=== PATIENT | male | born 1985 | race Caucasian/White ===

== ENCOUNTER → 2016-08-10 | Outpatient (CLI) | payer OTHER ==
[2016-08-10 08:54] LABS: ABSOLUTE EOSINOPHILS # (AUTO) 0.4 10^3/uL (0.0-0.6); ABSOLUTE MONOCYTES (AUTO) 0.5 10^3/uL (0.1-1.4); ABSOLUTE NEUT (AUTO) 4.9 10^3/uL (1.7-8.2); BASOPHILS % (AUTO) 0.4 % (0-2); EOSINOPHILS % (AUTO) 4.1 % (0-6); HEMATOCRIT 45.3 % (37.9-51.0); HEMOGLOBIN 15.9 g/dL (13.5-17.0); HGB HCT DIFFERENCE 2.4; LYMPHOCYTES % (AUTO) 33.8 % (13-45); MEAN CORPUSCULAR HEMOGLOBIN 27.8 pg (27.0-33.4); MEAN CORPUSCULAR HGB CONC 35.1 g/dL (32.0-36.0); MEAN CORPUSCULAR VOLUME 79 fl (80-97); MONOCYTES % (AUTO) 5.3 % (3-13); RED BLOOD COUNT 5.71 10^6/uL (4.35-5.55); RED CELL DISTRIBUTION WIDTH 13.4 % (11.5-14.0); SEGMENTED NEUTROPHILS % (AUTO) 56.4 % (42-78); WHITE BLOOD COUNT 8.8 10^3/uL (4.0-10.5)
== END ==
LOC: RAD 07:31
PROVIDERS: ATTEND Nurse Practitioner Adult Health
DX: J45.31 Mild persistent asthma with (acute) exacerbation (principal); R06.00 Dyspnea, unspecified
CPT/HCPCS: 36415; 71250; 85025; 86003

== ENCOUNTER 2017-08-18 20:01 | Emergency (ER) | payer OTHER ==
--- NOTE | 2017-08-18 20:32 | ER Document Report ---
ED Medical Screen (RME) - General Chief Complaint: Abdominal Pain Stated Complaint: RIGHT SIDE PAIN Time Seen by Provider: 08/18/17 20:30 Notes: Patient presents stating that he has right lower quadrant and right lateral abdominal pain. He states that he has had this for several days. And that is harder to take a deep breath because of the pain. He states that he has had some mild nausea and upset stomach as well. No diarrhea no vomiting. No previous abdominal surgeries. He denies any chronic medical conditions. He states he came in tonight because he could not sleep due to the pain. TRAVEL OUTSIDE OF THE [place] IN LAST 30 DAYS: No - Related Data Allergies/Adverse Reactions: amoxicillin [Amoxicillin] Allergy (Severe, Verified 07/16/11 20:06) Past Medical History GI Medical History: Reports: Hx Hiatal Hernia - Immunizations Hx Diphtheria, Pertussis, Tetanus Vaccination: Yes Physical Exam - Vital signs Vitals: Temp Pulse Resp BP Pulse Ox 98.6 F 79 18 143/84 H 99 08/18/17 20:18 08/18/17 20:18 08/18/17 20:18 08/18/17 20:18 08/18/17 20:18 Course - Vital Signs Vital signs: Temp Pulse Resp BP Pulse Ox 98.6 F 79 18 143/84 H 99 08/18/17 20:18 08/18/17 20:18 08/18/17 20:18 08/18/17 20:18 08/18/17 20:18
[2017-08-18 21:05] LABS: ABSOLUTE EOSINOPHILS # (AUTO) 0.5 10^3/uL (0.0-0.6); ABSOLUTE MONOCYTES (AUTO) 0.5 10^3/uL (0.1-1.4); ABSOLUTE NEUT (AUTO) 6.1 10^3/uL (1.7-8.2); BASOPHILS % (AUTO) 0.5 % (0-2); EOSINOPHILS % (AUTO) 4.7 % (0-6); HEMATOCRIT 42.9 % (37.9-51.0); HEMOGLOBIN 15.2 g/dL (13.5-17.0); LYMPHOCYTES % (AUTO) 29.9 % (13-45); MEAN CORPUSCULAR HEMOGLOBIN 27.8 pg (27.0-33.4); MEAN CORPUSCULAR HGB CONC 35.4 g/dL (32.0-36.0); MEAN CORPUSCULAR VOLUME 79 fl (80-97); MONOCYTES % (AUTO) 5.2 % (3-13); PLATELET COUNT 229 10^3/uL (150-450); RED BLOOD COUNT 5.45 10^6/uL (4.35-5.55); RED CELL DISTRIBUTION WIDTH 13.1 % (11.5-14.0); SEGMENTED NEUTROPHILS % (AUTO) 59.7 % (42-78); TOTAL CELLS COUNTED % (AUTO) 100 %; WHITE BLOOD COUNT 10.2 10^3/uL (4.0-10.5)
[2017-08-18 21:07] LABS: APPEARANCE,URINE CLEAR; BILIRUBIN,URINE NEGATIVE (NEGATIVE); COLOR,URINE STRAW; GLUCOSE, URINE NEGATIVE (NEGATIVE); KETONES,URINE NEGATIVE (NEGATIVE); LEUKOCYTE ESTERASE,URINE NEGATIVE (NEGATIVE); NITRITE,URINE NEGATIVE (NEGATIVE); PROTEIN,URINE NEGATIVE (NEGATIVE); URINE SPECIFIC GRAVITY 1.004; UROBILINOGEN,URINE NEGATIVE mg/dL (<2.0)
[2017-08-18 21:19] LABS: ALANINE AMINOTRANSFERASE 32 U/L (21-72); ALBUMIN 4.4 g/dL (3.5-5.0); ALKALINE PHOSPHATASE 119 U/L (38-126); ANION GAP 10 (5-19); ASPARTATE AMINO TRANSFERASE 23 U/L (17-59); BILIRUBIN,DIRECT 0.5 mg/dL (0.0-0.4); BILIRUBIN,TOTAL 0.6 mg/dL (0.2-1.3); BLOOD UREA NITROGEN 10 mg/dL (7-20); CARBON DIOXIDE 28 mmol/L (22-30); CHLORIDE 105 mmol/L (98-107); GLUCOSE 89 mg/dL (75-110); POTASSIUM 4.2 mmol/L (3.6-5.0)
[2017-08-18] MEDS ORDERED: IBUPROFEN 600 MG TABLET PO ONE (23:52)
[2017-08-18] MEDS ORDERED: LIDOCAINE 5% (700 MG) TRANSDERMAL ADH..PATCH TP ONE (23:52)
[2017-08-18] MEDS ORDERED: ACETAMINOPHEN 325 MG TABLET PO ONE (23:52)
--- NOTE | 2017-08-18 23:58 | ER Document Report ---
ED General - General Chief Complaint: Abdominal Pain Stated Complaint: RIGHT SIDE PAIN Time Seen by Provider: 08/18/17 20:30 Notes: Patient is a 32-year-old male who presents with 48 hours of right-sided flank and abdominal wall tenderness. Patient states that he noticed this yesterday and that has gotten progressively worse since onset. He describes it as an aching, throbbing pain to the right flank and lower abdomen. He notes that moving, coughing and breathing worsens the pain. He has not tried any to improve the pain. He denies any history of similar injury in the past. He notes he has had one episode of nausea but no vomiting or diarrhea. No fever or constitutional symptoms. He has not seen his primary doctor regarding today' s concerns. TRAVEL OUTSIDE OF THE [place] IN LAST 30 DAYS: No - Related Data Allergies/Adverse Reactions: amoxicillin [Amoxicillin] Allergy (Severe, Verified 07/16/11 20:06) Past Medical History - General Information source: Patient - Social History Smoking Status: Never Smoker Frequency of alcohol use: Rare Drug Abuse: None Lives with: Spouse/Significant other Family History: Reviewed & Not Pertinent Patient has suicidal ideation: No Patient has homicidal ideation: No Renal/ Medical History: Denies: Hx Peritoneal Dialysis GI Medical History: Reports: Hx Hiatal Hernia Past Surgical History: Reports: Hx Orthopedic Surgery - Shoulder - Immunizations Hx Diphtheria, Pertussis, Tetanus Vaccination: Yes Review of Systems - Review of Systems Notes: Constitutional: Negative for fever. HENT: Negative for sore throat. Eyes: Negative for visual changes. Cardiovascular: Negative for chest pain. Respiratory: Negative for shortness of breath. Gastrointestinal: Negative for abdominal pain, vomiting or diarrhea. Genitourinary: Negative for dysuria. Musculoskeletal: Positive for flank tenderness Skin: Negative for rash. Neurological: Negative for headaches, weakness or numbness. 10 point ROS negative except as marked above and in HPI. Physical Exam - Vital signs Vitals: Temp Pulse Resp BP Pulse Ox 98.6 F 79 18 143/84 H 99 08/18/17 20:18 08/18/17 20:18 08/18/17 20:18 08/18/17 20:18 08/18/17 20:18 Interpretation: Hypertensive Notes: PHYSICAL EXAMINATION: GENERAL: Well-appearing, well-nourished and in no acute distress. HEAD: Atraumatic, normocephalic. EYES: Pupils equal round and reactive to light, extraocular movements intact, sclera anicteric, conjunctiva are normal. ENT: nares patent, oropharynx clear without exudates. Moist mucous membranes. NECK: Normal range of motion, supple without lymphadenopathy LUNGS: Breath sounds clear to auscultation bilaterally and equal. No wheezes rales or rhonchi. HEART: Regular rate and rhythm without murmurs Chest wall: Pain on palpation of the right lower ribs as well as the flank musculature on the right side ABDOMEN: Soft, nontender, normoactive bowel sounds. No guarding, no rebound. No masses appreciated. EXTREMITIES: Normal range of motion, no pitting or edema. No cyanosis. NEUROLOGICAL: No focal neurological deficits. Moves all extremities spontaneously and on command. PSYCH: Normal mood, normal affect. SKIN: Warm, Dry, normal turgor, no rashes or lesions noted. Course - Re-evaluation Re-evalutation: 08/18/17 23:56 Patient presents with signs and symptoms most consistent with a musculoskeletal strain of the oblique muscle on the right. He has diffuse tenderness with movement, coughing and breathing of the flank on the right side along the entire aspect of the abdomen the lateral portion. No pleuritic pain, no tachypnea or dyspnea. Patient is PERC criteria negative. Very low clinical suspicion for acute PE. His abdominal exam is benign without any focal areas of tenderness. Bedside right upper quadrant ultrasound does not demonstrate any evidence of gallbladder wall thickening, pericholecystic fluid or gallstones. Labs are not consistent with an acute hepatitis, renal colic, or pyelonephritis. I instructed the patient to begin NSAIDs, Tylenol, topical lidocaine as well as stretching and heat. At this time will discharge with return precautions and follow-up recommendations. Verbal discharge instructions given a the bedside and opportunity for questions given. Medication warnings reviewed. Patient is in agreement with this plan and has verbalized understanding of return precautions and the need for primary care follow-up in the next 24-72 hours. - Vital Signs Vital signs: Temp Pulse Resp BP Pulse Ox 98.5 F 61 18 128/79 H 100 08/19/17 00:57 08/19/17 00:57 08/19/17 00:57 08/19/17 00:57 08/19/17 00:57 - Laboratory Result Diagrams: 08/18/17 20:51 08/18/17 20:51 Laboratory results interpreted by me: 08/18/17 08/18/17 20:51 20:51 MCV 79 L Direct Bilirubin 0.5 H Discharge - Discharge Clinical Impression: Right flank pain, Musculoskeletal strain Condition: Good Disposition: HOME, SELF-CARE Additional Instructions: Your signs and symptoms are most consistent with an abdominal wall muscle strain. You should continue to take anti-inflammatories such as ibuprofen 600 mg every 6 hours. Continue to apply heat to the area is much your able. Please follow-up with your primary care physician if you do not have improving your symptoms in the next 1-2 weeks. Please return immediately if you develop weakness, numbness, spreading redness from the area, or any other symptoms that are concerning to you.
[2017-08-19 00:58] VITALS: BP 128/79
== END 2017-08-19 00:59 | disposition home or self-care (01) ==
LOC: ER 20:01
DX: T14.8XXA Other injury of unspecified body region, initial encounter (principal); R10.30 Lower abdominal pain, unspecified; X58.XXXA Exposure to other specified factors, initial encounter; Z88.0 Allergy status to penicillin
CPT/HCPCS: 36415; 80053; 81001; 85025; 99284

== ENCOUNTER 2017-10-09 21:55 | Emergency (ER) | payer OTHER ==
--- NOTE | 2017-10-09 22:24 | ER Document Report ---
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 Initially had watery eyes and trouble breathing, but this improved after going outside of the house. Denies wheezing , stridor, blurry vision, headache or syncope. TRAVEL OUTSIDE OF THE [place] IN LAST 30 DAYS: No - Related Data Allergies/Adverse Reactions: amoxicillin [Amoxicillin] Allergy (Severe, Verified 07/16/11 20:06) Past Medical History - General Information source: Patient - Social History Smoking Status: Unknown if Ever Smoked Family History: Reviewed & Not Pertinent Renal/ Medical History: Denies: Hx Peritoneal Dialysis GI Medical History: Reports: Hx Hiatal Hernia Past Surgical History: Reports: Hx Orthopedic Surgery - Shoulder - Immunizations Hx Diphtheria, Pertussis, Tetanus Vaccination: Yes Review of Systems - Review of Systems Notes: REVIEW OF SYSTEMS: CONSTITUTIONAL: -fevers, -chills EENT: +eye pain, -difficulty swallowing, -nasal congestion CARDIOVASCULAR: -chest pain, -syncope. RESPIRATORY: -cough, +SOB GASTROINTESTINAL: -abdominal pain, -nausea, -vomiting, -diarrhea GENITOURINARY: -dysuria, -hematuria MUSCULOSKELETAL: -back pain, -neck pain SKIN: -rash or skin lesions. HEMATOLOGIC: -easy bruising or bleeding. LYMPHATIC: -swollen, enlarged glands. NEUROLOGICAL: -altered mental status or loss of consciousness, -headache, - neurologic symptoms PSYCHIATRIC: -anxiety, -depression. ALL OTHER SYSTEMS REVIEWED AND NEGATIVE. Physical Exam - Vital signs Vitals: Temp Pulse Resp BP Pulse Ox 98.3 F 65 16 133/81 H 99 10/09/17 22:27 10/09/17 22:27 10/09/17 22:27 10/09/17 22:27 10/09/17 22:27 - Notes Notes: PHYSICAL EXAMINATION: GENERAL: Well-appearing, well-nourished and in no acute distress. HEAD: Atraumatic, normocephalic. EYES: Pupils equal round and reactive to light, extraocular movements intact, sclera anicteric, conjunctiva are normal. ENT: nares patent, oropharynx clear without exudates. Moist mucous membranes. NECK: Normal range of motion, supple without lymphadenopathy LUNGS: Breath sounds clear to auscultation bilaterally and equal. No wheezes rales or rhonchi. HEART: Regular rate and rhythm without murmurs ABDOMEN: Soft, nontender, normoactive bowel sounds. No guarding, no rebound. No masses appreciated. EXTREMITIES: Normal range of motion, no pitting or edema. No cyanosis. NEUROLOGICAL: Cranial nerves grossly intact. Normal speech, normal gait. Normal sensory and motor exams. PSYCH: Normal mood, normal affect. SKIN: Warm, Dry, normal turgor, no rashes or lesions noted. Course - Re-evaluation Re-evalutation: Patient appears well. Upon my evaluation, no respiratory distress and no symptoms. Given patient return precautions and understands. - Vital Signs Vital signs: Temp Pulse Resp BP Pulse Ox 98.3 F 65 16 133/81 H 99 10/09/17 22:27 10/09/17 22:27 10/09/17 22:27 10/09/17 22:27 10/09/17 22:27 Discharge - Discharge Clinical Impression: Exposure to chemical irritant Condition: Stable Disposition: HOME, SELF-CARE Additional Instructions: NORMAL EXAM AND WORKUP: At this time, your examination and workup show no significant abnormality. No significant abnormal physical findings were noted. All laboratory, EKG, and imaging (x-ray, CT scans, ultrasound) studies that were ordered show no significant abnormality. Although your examination and all studies that were ordered showed no significant abnormal finding, there are no examinations and no studies that are 100% accurate. There is always the possibility that some abnormality could exist and not be detected with physical examination or within the limits and capabilities of laboratory and other studies. You should return or follow up as you were instructed on your visit today for further evaluation if your symptoms do not resolve.
[2017-10-09 22:35] VITALS: BP 133/81
== END 2017-10-09 22:45 | disposition home or self-care (01) ==
LOC: ER 21:55
DX: Z77.098 Contact with and (suspected) exposure to other hazardous, chiefly nonmedicinal, chemicals (principal); R06.02 Shortness of breath
CPT/HCPCS: 99283

== ENCOUNTER 2019-10-01 21:28 | Emergency (ER) | payer OTHER ==
--- NOTE | 2019-10-01 22:07 | ER Document Report ---
ED Medical Screen (RME) - General Chief Complaint: Abdominal Pain Stated Complaint: ABDOMINAL PAIN/CHEST PAIN/FLANK PAIN Primary Care Provider: JOEL RAMOS MD [Primary Care Provider] - Follow up as needed Notes: Patient is a 34-year-old white male with past medical history of depression, GERD, hiatal hernia who presents the emergency department with chief complaint of abdominal pain and chest pain for 3 months. Has been seeing different physicians who continue to prescribe Zofran and nausea medications without any relief. Saw telecommunications support who recommended studies of the gallbladder. He states so far those have been normal. He was supposed to have what he describes to be a HIDA scan on Friday but states he cannot wait much longer. He is really concerned about the chest pain. States it is associated with nausea. No diarrhea or constipation. States the pain is worse sometimes with eating. Denies any history of A. fib or other heart or lung conditions. I have treated and performed a rapid initial assessment of this patient. A comprehensive ED assessment and evaluation of the patient, analysis of test results and completion of medical decision making process will be conducted by additional ED providers. PHYSICAL EXAMINATION: GENERAL: Well-appearing, well-nourished and in no acute distress. A&Ox4. Answers questions appropriately. TRAVEL OUTSIDE OF THE [place] IN LAST 30 DAYS: No - Related Data Allergies/Adverse Reactions: amoxicillin [Amoxicillin] Allergy (Severe, Verified 07/16/11 20:06) Past Medical History Pulmonary Medical History: Reports: Hx Bronchitis Renal/ Medical History: Denies: Hx Peritoneal Dialysis GI Medical History: Reports: Hx Hiatal Hernia Past Surgical History: Reports: Hx Orthopedic Surgery - Shoulder - Immunizations Hx Diphtheria, Pertussis, Tetanus Vaccination: Yes Physical Exam - Vital signs Vitals: Temp Pulse Resp BP Pulse Ox 99.0 F 68 18 166/84 H 97 10/01/19 21:44 10/01/19 21:44 10/01/19 21:44 10/01/19 21:44 10/01/19 21:44 Course - Vital Signs Vital signs: Temp Pulse Resp BP Pulse Ox 99.0 F 68 18 166/84 H 97 10/01/19 21:44 10/01/19 21:44 10/01/19 21:44 10/01/19 21:44 10/01/19 21:44 Doctor's Discharge - Discharge Referrals: JOEL RAMOS MD [Primary Care Provider] - Follow up as needed
[2019-10-01 22:40] LABS: ABSOLUTE EOSINOPHILS # (AUTO) 0.4 10^3/uL (0.0-0.6); ABSOLUTE LYMPHOCYTES (AUTO) 2.5 10^3/uL (0.5-4.7); ABSOLUTE MONOCYTES (AUTO) 0.4 10^3/uL (0.1-1.4); ABSOLUTE NEUT (AUTO) 4.2 10^3/uL (1.7-8.2); BASOPHILS % (AUTO) 0.3 % (0-2); EOSINOPHILS % (AUTO) 5.3 % (0-6); HEMATOCRIT 42.2 % (37.9-51.0); LYMPHOCYTES % (AUTO) 33.5 % (13-45); MEAN CORPUSCULAR HEMOGLOBIN 28.4 pg (27.0-33.4); MEAN CORPUSCULAR HGB CONC 35.6 g/dL (32.0-36.0); MEAN CORPUSCULAR VOLUME 80 fl (80-97); MONOCYTES % (AUTO) 5.2 % (3-13); PLATELET COUNT 203 10^3/uL (150-450); RED BLOOD COUNT 5.29 10^6/uL (4.35-5.55); RED CELL DISTRIBUTION WIDTH 12.3 % (11.5-14.0); SEGMENTED NEUTROPHILS % (AUTO) 55.7 % (42-78); TOTAL CELLS COUNTED % (AUTO) 100 %; WHITE BLOOD COUNT 7.5 10^3/uL (4.0-10.5)
[2019-10-01 22:51] LABS: APPEARANCE,URINE SLIGHTLY-CLOUDY; BILIRUBIN,URINE NEGATIVE (NEGATIVE); COLOR,URINE YELLOW; GLUCOSE, URINE NEGATIVE (NEGATIVE); KETONES,URINE NEGATIVE (NEGATIVE); PROTEIN,URINE 30 mg/dL (NEGATIVE); URINE SPECIFIC GRAVITY 1.036
[2019-10-01 22:58] LABS: ALBUMIN 4.3 g/dL (3.5-5.0); ALKALINE PHOSPHATASE 108 U/L (38-126); ANION GAP 7 (5-19); ASPARTATE AMINO TRANSFERASE 26 U/L (17-59); BILIRUBIN,TOTAL 0.5 mg/dL (0.2-1.3); BLOOD UREA NITROGEN 15 mg/dL (7-20); CALCIUM 9.3 mg/dL (8.4-10.2); CARBON DIOXIDE 26 mmol/L (22-30); CHLORIDE 105 mmol/L (98-107); GLUCOSE 100 mg/dL (75-110); POTASSIUM 3.8 mmol/L (3.6-5.0); TOTAL PROTEIN 7.6 g/dL (6.3-8.2)
--- NOTE | 2019-10-01 23:22 | ER Document Report ---
ED General - General Chief Complaint: Abdominal Pain Stated Complaint: ABDOMINAL PAIN/CHEST PAIN/FLANK PAIN Time Seen by Provider: 10/01/19 23:11 Primary Care Provider: JOEL RAMOS MD [Primary Care Provider] - Follow up in 3-5 days Notes: Patient is a 34-year-old male that comes to the emergency department for chief complaint of pain in his upper abdomen that goes into his lower chest, he reports frequent nausea, he states symptoms are much worse after waking up in the morning, also worse with food. He denies vomiting but he frequently feels "watering in my mouth". Symptoms have been worse for the past 2 weeks. He states he was seen by urgent care, told he had a virus, tested for coronavirus and this was negative. He states he was prescribed Zofran which keeps him from vomiting but has not resolved his symptoms. He is on pantoprazole, has a history of severe GERD, esophageal stricture with dilation, and small hiatal hernia. He had a negative ultrasound and is pending a HIDA scan on Friday with gastroenterology. He is a former smoker, stopped drinking alcohol, states he just not drinking Mountain Dew as well trying to resolve his symptoms. He denies recreational drugs. TRAVEL OUTSIDE OF THE [place] IN LAST 30 DAYS: No - Related Data Allergies/Adverse Reactions: amoxicillin [Amoxicillin] Allergy (Severe, Verified 07/16/11 20:06) Past Medical History - General Information source: Patient - Social History Smoking Status: Never Smoker Frequency of alcohol use: Occasional Drug Abuse: None Lives with: Family Family History: Reviewed & Not Pertinent Patient has suicidal ideation: No Patient has homicidal ideation: No Pulmonary Medical History: Reports: Hx Bronchitis Renal/ Medical History: Denies: Hx Peritoneal Dialysis GI Medical History: Reports: Hx Gastroesophageal Reflux Disease, Hx Hiatal Hernia, Other - Esophageal stricture Past Surgical History: Reports: Hx Orthopedic Surgery - Shoulder - Immunizations Hx Diphtheria, Pertussis, Tetanus Vaccination: Yes Review of Systems - Review of Systems Constitutional: No symptoms reported EENT: No symptoms reported Cardiovascular: No symptoms reported Respiratory: No symptoms reported Gastrointestinal: See HPI Genitourinary: No symptoms reported Male Genitourinary: No symptoms reported Musculoskeletal: No symptoms reported Skin: No symptoms reported Hematologic/Lymphatic: No symptoms reported Neurological/Psychological: No symptoms reported Physical Exam - Vital signs Vitals: Temp Pulse Resp BP Pulse Ox 99.0 F 68 18 166/84 H 97 10/01/19 21:44 10/01/19 21:44 10/01/19 21:44 10/01/19 21:44 10/01/19 21:44 - Notes Notes: GENERAL: Alert, cooperative, no signs of distress HEAD: Normocephalic, atraumatic. EYES: Pupils equal, round, and reactive to light. Extraocular movements intact. ENT: Oral mucosa moist, tongue midline. Oropharynx unremarkable. Airway patent. NECK: Full range of motion. Supple. Trachea midline. No lymphadenopathy. LUNGS: Clear to auscultation bilaterally, no wheezes, rales, or rhonchi. No respiratory distress. Non-tender chest wall. HEART: Regular rate and rhythm. No murmur ABDOMEN: Left upper quadrant tenderness and mild epigastric tenderness. Remaining abdomen is soft and benign. No distention, guarding, rigidity. Bowel sounds present. GENITOURINARY: Deferred EXTREMITIES: Moves all 4 extremities spontaneously. No edema, normal radial and dorsalis pedis pulses bilaterally. No cyanosis. BACK: no cervical, thoracic, lumbar midline tenderness. No saddle anesthesia, normal distal neurovascular exam. Moves all extremities in full range of motion. NEUROLOGICAL: Alert and oriented x3. Normal speech. Cranial nerves II through XII grossly intact. Strength 5/5 in all extremities. PSYCH: Slightly anxious SKIN: Warm, dry, normal turgor. No rashes or lesions noted. Course - Re-evaluation Re-evalutation: Work-up from triage reviewed including unremarkable CBC, unremarkable chemistry, unremarkable urinalysis for elevated specific gravity. Unremarkable EKG and chest x-ray. Patient with very upper GI sounding symptoms, he has some tenderness in the left upper quadrant and mildly in the epigastric area. He already had a negative ultrasound and has a HIDA scan pending on Friday. Patient also has a significant history for small hiatal hernia, significant GERD, and his symptoms are very specific with this (worsened when eating, worsened when lying down). Patient did just stop drinking heavy amounts of Mountain Dew. Patient was provided with GI cocktail, Carafate, Pepcid. On reevaluation patient is much improved. Patient is able to tolerate p.o. without any difficulty. Very low suspicion bridgette t this is cardiac based on his negative work-up despite 2 weeks of symptoms. Discussed expectations, follow-up, and return precautions at length. Patient states appreciation and agreement with plan. Stable and well-appearing at time of discharge. - Vital Signs Vital signs: Temp Pulse Resp BP Pulse Ox 98.6 F 53 L 16 127/75 H 98 10/02/19 01:47 10/02/19 01:47 10/02/19 01:47 10/02/19 01:47 10/02/19 01:47 - Laboratory Result Diagrams: 10/01/19 22:20 10/01/19 22:20 Laboratory results interpreted by me: 10/01/19 22:20 Urine Protein 30 H Urine Urobilinogen 2.0 H - EKG Interpretation by Me Additional EKG results interpreted by me: EKG shows sinus rhythm at a rate of 61, QTC 407, normal axis, no T wave in versions or ST segment changes in consecutive leads Discharge - Discharge Clinical Impression: Epigastric pain Condition: Stable Disposition: HOME, SELF-CARE Additional Instructions: Your symptoms and examination indicate gastritis and esophagitis (inflammation of your upper gastrointestinal tract). Your work-up today does not show any concerning findings. Take Phenergan for nausea, take Carafate and Pepcid as prescribed to help treat this, you can take additional Rolaids, Tums, Maalox, etc. if needed. You can take Tylenol for pain. Avoid NSAIDs, alcohol, smoking, caffeine, spicy food. Start with clear fluids, progress to bland diet. Follow-up with primary care for additional evaluation including completing your HIDA scan and also possible H. pylori testing or endoscopy. Return if you worsen including uncontrolled vomiting, vomiting blood, black stools, severe pain, fever of 100.4 or greater, or any other concerning or worsening symptoms. Prescriptions: Sucralfate [Carafate 1 gm Tablet] 1 gm PO QID #20 tablet Famotidine [Pepcid 20 mg Tablet] 20 mg PO BID #20 tablet Promethazine HCl [Phenergan 25 mg Tablet] 25 mg PO Q6H PRN #15 tablet PRN Reason: Referrals: JOEL RAMOS MD [Primary Care Provider] - Follow up in 3-5 days
--- NOTE | 2019-10-01 23:33 | RADIOLOGY REPORT (SQ) ---
EXAM DESCRIPTION: XR CHEST 1 VIEW COMPLETED DATE/TME: 10/01/2019 11:17 PM CLINICAL HISTORY: cp COMPARISON: February 25, 2016 FINDINGS: Cardiac silhouette is within normal limits. There is no focal parenchymal or pleural disease. There is no acute osseous process visualized. IMPRESSION: No evidence of acute cardiopulmonary disease.
[2019-10-01] MEDS ORDERED: FAMOTIDINE 20 MG TABLET PO ONE (23:37)
[2019-10-01] MEDS ORDERED: METOCLOPRAMIDE HCL ORAL SOLN 10 MG/10 ML UDCUP PO ONE (23:37)
[2019-10-01] MEDS ORDERED: SUCRALFATE 1 GM TABLET PO ONE (23:37)
[2019-10-01] MEDS ORDERED: LIDOCAINE 2% VISCOUS SOLN 15 ML UDCUP PO ONE (23:37)
[2019-10-01] MEDS ORDERED: MAG HYDROX/AL HYDROX/SIMETH SUSP 30 ML UDCUP PO ONE (23:37)
[2019-10-02 01:49] VITALS: BP 127/75
--- NOTE | 2019-10-02 08:47 | EKG REPORT ---
SEVERITY:- NORMAL ECG - SINUS RHYTHM : Confirmed by: Chavez Cortez MD 02-Oct-2019 08:46:25
== END 2019-10-02 01:47 | disposition home or self-care (01) ==
LOC: ER 21:28
DX: R10.13 Epigastric pain (principal); R07.9 Chest pain, unspecified; R10.10 Upper abdominal pain, unspecified; R11.0 Nausea; Z79.899 Other long term (current) drug therapy; Z88.1 Allergy status to other antibiotic agents
CPT/HCPCS: 93005; 99284; 36415; 83690; 85025; 80053; 81001; 84484; 71045; 93010; J3490

== ENCOUNTER 2019-10-03 06:09 | Emergency (ER) | payer OTHER ==
[2019-10-03 06:15] VITALS: BP 144/83
[2019-10-03] MEDS ORDERED: TETRACAINE HCL 0.5% OPH SOLN 4 ML ONE (07:02)
[2019-10-03] MEDS ORDERED: ERYTHROMYCIN 0.5% OPH OINT 1 GM UNIT DOSE OD ONE (07:16)
[2019-10-03] MEDS ORDERED: CYCLOPENTOLATE HCL 2% OPH SOLN 2 ML OD ONE (07:16)
--- NOTE | 2019-10-03 07:47 | ER Document Report ---
ED Eye Complaint - General Chief Complaint: Eye Pain Stated Complaint: RIGHT EYE PAIN Time Seen by Provider: 10/03/19 06:43 Primary Care Provider: JOEL RAMOS MD [Primary Care Provider] - Follow up as needed TRAVEL OUTSIDE OF THE [place] IN LAST 30 DAYS: No - HPI Onset: Other - Last night Eye location: Right Occurred at: Home Quality of pain: Sharp Severity: Moderate Exposure: Other - sawdust Safety glasses worn: Yes Contact lenses worn: No Associated symptoms: Burning, Pain, Photophobia, Redness, Eyelid swelling. denies: Blurred vision, Double vision, Decreased vision, Loss of vision - Related Data Allergies/Adverse Reactions: amoxicillin [Amoxicillin] Allergy (Severe, Verified 07/16/11 20:06) Past Medical History - General Information source: Patient - Social History Smoking Status: Never Smoker Chew tobacco use (# tins/day): No Frequency of alcohol use: None Drug Abuse: None Family History: Reviewed & Not Pertinent Patient has suicidal ideation: No Patient has homicidal ideation: No Pulmonary Medical History: Reports: Hx Bronchitis Renal/ Medical History: Denies: Hx Peritoneal Dialysis GI Medical History: Reports: Hx Gastroesophageal Reflux Disease, Hx Hiatal Hernia Past Surgical History: Reports: Hx Orthopedic Surgery - Shoulder - Immunizations Hx Diphtheria, Pertussis, Tetanus Vaccination: Yes Review of Systems - Review of Systems Notes: Constitutional: Negative for fever. HENT: Negative for sore throat. Eyes: Negative for visual changes. Cardiovascular: Negative for chest pain. Respiratory: Negative for shortness of breath. Gastrointestinal: Currently under treatment for gastritis. Genitourinary: Negative for dysuria. Musculoskeletal: Negative for back pain. Skin: Negative for rash. Neurological: Negative for headaches, weakness or numbness. 10 point ROS negative except as marked above and in HPI. Physical Exam - Vital signs Vitals: Temp Pulse Resp BP Pulse Ox 97.8 F 52 L 16 144/83 H 99 10/03/19 06:13 10/03/19 06:13 10/03/19 06:13 10/03/19 06:13 10/03/19 06:13 - Notes Notes: GENERAL: Male patient of approximately stated age appearing in moderate discomfort. SKIN: Good turgor no rashes. HEAD: Normocephalic atraumatic. EYES: Moderate swelling of right upper eyelid. Conjunctival injection on the right. Extraocular movements intact. Inspection of left eye normal. NECK: Supple. No masses or thyromegaly. No adenopathy. Carotids 2+ without bruits. No JVD. BACK: Symmetrical without tenderness. CHEST: Respirations unlabored. Breath sounds clear and symmetrical. HEART: Regular rhythm. No murmur gallop or rub. ABDOMEN: Soft nontender without masses, organomegaly or rebound. Bowel sounds normally active. No bruits. EXTREMITIES: No edema. No calf tenderness. Cap refill less than 1.5 seconds. Dorsalis pedis and posterior tibial pulses 3+ and symmetrical. NEUROLOGICAL: Alert and oriented x3. Nonfocal. PSYCHIATRIC: Appropriate affect. - HEENT Visual acuity- Right eye: 20/20 Visual acuity- Left eye: 20/20 Visual acuity- Both eyes: 20/20 Corrective lenses worn: Yes - Glasses Course - Vital Signs Vital signs: Temp Pulse Resp BP Pulse Ox 97.8 F 52 L 16 144/83 H 99 10/03/19 06:13 10/03/19 06:13 10/03/19 06:13 10/03/19 06:13 10/03/19 06:13 Procedures - Eye Procedure Right Time completed: 07:45 Eye Irrigated w/ Saline (ccs): 200 Alcaine Drops Administered: Yes Fluorescein applied: Right Antibiotic Oinment/Drps Admin: Right eye - Erythromycin ointment Cyclogel 2 Drops Administered: Right eye Slit lamp used: Yes Notes: 10/03/19 07:46 Patient has a moderately large corneal abrasion at the 10 o'clock position at the limbus. No streaming of fluorescein. 10/03/19 07:47 No foreign body present on eversion of upper and lower lids. Discharge - Discharge Clinical Impression: Injury of conjunctiva and corneal abrasion of right eye w/o FB Qualifiers: Encounter type: initial encounter Qualified Code(s): S05.01XA - Injury of conjunctiva and corneal abrasion without foreign body, right eye, initial encounter Condition: Stable Disposition: HOME, SELF-CARE Additional Instructions: Corneal Abrasion You have a corneal abrasion, a scratch on the surface of the eye. The pain of a corneal abrasion feels like a sharp particle in the eye. Usually, antibiotics are placed in the eye to prevent infection. Occasionally, medication will be placed in the eye to dilate the pupil. This is done to relieve some of your discomfort and is only temporary. Pain medication may be required. Don't drive or operate machinery until you have the use of both your eyes. The abrasion usually is healed in one or two days. A follow-up examination to confirm healing is recommended. Call the doctor or return at once if you develop severe pain, decreasing vision, eye swelling, or purulent drainage. Use the following medications: Cyclogyl 2 drops in right eye twice a day for the next 3 days Erythromycin ointment thin ribbon of antibiotic under eyelid 3 times a day for next 3 days Tramadol as needed for pain Wear dark glasses if you are exposed to bright light. Do not drive if you are taking tramadol. Return here as needed for new or worsening symptoms. Follow-up with general practice or hall monitor next 3 to 5 days. Prescriptions: Tramadol HCl [Ultram 50 mg Tablet] 50 mg PO Q4HP PRN #12 tab PRN Reason: Referrals: JOEL RAMOS MD [Primary Care Provider] - Follow up as needed
== END 2019-10-03 08:21 | disposition home or self-care (01) ==
LOC: ER 06:09
DX: S05.01XA Injury of conjunctiva and corneal abrasion without foreign body, right eye, initial encounter (principal); H57.11 Ocular pain, right eye; X58.XXXA Exposure to other specified factors, initial encounter; Y92.009 Unspecified place in unspecified non-institutional (private) residence as the place of occurrence of the external cause; Z88.0 Allergy status to penicillin
CPT/HCPCS: 99283; J3490 ×2

== ENCOUNTER → 2019-10-04 | Outpatient (CLI) | payer OTHER ==
--- NOTE | 2019-10-04 10:14 | RADIOLOGY REPORT (SQ) ---
EXAM DESCRIPTION: NM HIDA SCAN WITH CCK IMAGES COMPLETED DATE/TIME: 10/04/2019 9:36 am REASON FOR STUDY: (R10.13)EPIGASTRIC PAIN R10.13 EPIGASTRIC PAIN COMPARISON: Ultrasound report 09/22/2019. RADIONUCLIDE AND DOSE: DOSAGE RADIONUCLIDE: 5.4 millicuries Tc99m Mebrofenin. DOSAGE CCK: 1.9 micrograms. DOSAGE MORPHINE: Not required. The route of agent administration: Intravenous TECHNIQUE: Serial imaging right upper quadrant up to 60 minutes following injection of radionuclide. CCK injected after gallbladder visualized. LIMITATIONS: None. FINDINGS: LIVER: Normal visualization without areas of photopenia. INTRAHEPATIC BILE DUCTS: Normal size and no delay in visualization. COMMON BILE DUCT: Normal without dilatation. GALLBLADDER: Normal visualization. Calculated ejection fraction of 72%. Normal range is greater th an 35%. PHYSICAL RESPONSE: Patients presenting complaint was reproduced. OTHER: No other significant finding. IMPRESSION: 1. No evidence of cystic or common duct obstruction. 2. Normal gallbladder ejection fracture calculated at 72%. TECHNICAL DOCUMENTATION: JOB ID: [id number] 2010 [employer]- All Rights Reserved Reading location - IP/workstation name: [email or web address]
== END ==
LOC: RAD 07:29
PROVIDERS: ATTEND Internal Medicine Gastroenterology
DX: R10.13 Epigastric pain (principal)
CPT/HCPCS: 78227; J2805; A9537; Q9969

== ENCOUNTER 2019-10-12 04:30 | Emergency (ER) | payer OTHER ==
[2019-10-12 05:17] LABS: ABSOLUTE EOSINOPHILS # (AUTO) 0.5 10^3/uL (0.0-0.6); ABSOLUTE LYMPHOCYTES (AUTO) 2.4 10^3/uL (0.5-4.7); ABSOLUTE MONOCYTES (AUTO) 0.4 10^3/uL (0.1-1.4); ABSOLUTE NEUT (AUTO) 3.7 10^3/uL (1.7-8.2); BASOPHILS % (AUTO) 0.4 % (0-2); EOSINOPHILS % (AUTO) 6.7 % (0-6); HEMATOCRIT 42.2 % (37.9-51.0); LYMPHOCYTES % (AUTO) 34.6 % (13-45); MEAN CORPUSCULAR HEMOGLOBIN 28.4 pg (27.0-33.4); MEAN CORPUSCULAR HGB CONC 35.5 g/dL (32.0-36.0); MEAN CORPUSCULAR VOLUME 80 fl (80-97); MONOCYTES % (AUTO) 6.3 % (3-13); PLATELET COUNT 186 10^3/uL (150-450); RED BLOOD COUNT 5.27 10^6/uL (4.35-5.55); RED CELL DISTRIBUTION WIDTH 12.7 % (11.5-14.0); TOTAL CELLS COUNTED % (AUTO) 100 %
[2019-10-12 05:31] LABS: ALBUMIN 4.2 g/dL (3.5-5.0); ALKALINE PHOSPHATASE 146 U/L (38-126); ANION GAP 9 (5-19); ASPARTATE AMINO TRANSFERASE 24 U/L (17-59); BILIRUBIN,TOTAL 0.4 mg/dL (0.2-1.3); BLOOD UREA NITROGEN 14 mg/dL (7-20); CALCIUM 9.7 mg/dL (8.4-10.2); CARBON DIOXIDE 27 mmol/L (22-30); CHLORIDE 103 mmol/L (98-107); GLUCOSE 101 mg/dL (75-110); POTASSIUM 4.1 mmol/L (3.6-5.0); TOTAL PROTEIN 7.3 g/dL (6.3-8.2)
[2019-10-12 05:52] LABS: APPEARANCE,URINE CLEAR; BILIRUBIN,URINE NEGATIVE (NEGATIVE); COLOR,URINE YELLOW; GLUCOSE, URINE NEGATIVE (NEGATIVE); KETONES,URINE NEGATIVE (NEGATIVE); LEUKOCYTE ESTERASE,URINE NEGATIVE (NEGATIVE); NITRITE,URINE NEGATIVE (NEGATIVE); PROTEIN,URINE NEGATIVE (NEGATIVE); URINE SPECIFIC GRAVITY 1.021; UROBILINOGEN,URINE NEGATIVE mg/dL (<2.0)
[2019-10-12] MEDS ORDERED: LIDOCAINE 2% VISCOUS SOLN 15 ML UDCUP PO ONE (06:14)
[2019-10-12] MEDS ORDERED: MAG HYDROX/AL HYDROX/SIMETH SUSP 30 ML UDCUP PO ONE (06:14)
[2019-10-12] MEDS ORDERED: ONDANSETRON ODT 4 MG TAB (6 TAB/ER DISP) PO PRN (06:14)
[2019-10-12] MEDS ORDERED: METOCLOPRAMIDE HCL ORAL SOLN 10 MG/10 ML UDCUP PO ONE (06:14)
--- NOTE | 2019-10-12 06:17 | ER Document Report ---
ED General - General Chief Complaint: Abdominal Pain Stated Complaint: ABDOMINAL PAIN Time Seen by Provider: 10/12/19 05:59 Primary Care Provider: CATRINA MILES [Primary Care Provider] - Follow up as needed Notes: 34-year-old male with history of esophageal stricture, GERD, and general abdominal pain presents to the emergency department with chief complaint of right upper quadrant epigastric stabbing pain that woke him up at 2:00 in the morning.= Patient states that he is followed by the CT but has not been able to get follow-up. Patient did see a health unit coordinator and had a recent HIDA scan which showed a normal ejection fraction and no evidence of common bile duct blockage. Patient states that his pain is mostly epigastric. Patient states that it is stabbing and "I just have a sour stomach". No fever or chills, does not currently complain of nausea or vomiting, normal bowel movements, no hematemesis or hematochezia. Patient does take a daily PPI. Patient was seen here for the same problem approximately 2 weeks ago. No other complaints TRAVEL OUTSIDE OF THE [place] IN LAST 30 DAYS: No - Related Data Allergies/Adverse Reactions: amoxicillin [Amoxicillin] Allergy (Severe, Verified 07/16/11 20:06) Past Medical History - Social History Smoking Status: Unknown if Ever Smoked Family History: Reviewed & Not Pertinent Patient has suicidal ideation: No Patient has homicidal ideation: No Pulmonary Medical History: Reports: Hx Bronchitis Renal/ Medical History: Denies: Hx Peritoneal Dialysis GI Medical History: Reports: Hx Gastroesophageal Reflux Disease, Hx Hiatal Hernia Past Surgical History: Reports: Hx Orthopedic Surgery - Shoulder - Immunizations Hx Diphtheria, Pertussis, Tetanus Vaccination: Yes Review of Systems - Review of Systems Constitutional: See HPI EENT: No symptoms reported Cardiovascular: No symptoms reported Respiratory: No symptoms reported Gastrointestinal: See HPI Genitourinary: See HPI Male Genitourinary: No symptoms reported Musculoskeletal: No symptoms reported Skin: No symptoms reported Hematologic/Lymphatic: No symptoms reported Neurological/Psychological: No symptoms reported Physical Exam - Vital signs Vitals: Temp 97.6 F 10/12/19 04:30 - Notes Notes: PHYSICAL EXAMINATION: Reviewed vital signs and charting by RN GENERAL: Alert, interacts well. No acute distress. HEAD: Normocephalic, atraumatic. EYES: Pupils equal and round. Extraocular movements intact. ENT: Oral mucosa moist, tongue midline. NECK: Full range of motion. Trachea midline. LUNGS: Clear to auscultation bilaterally, no wheezes, rales, or rhonchi. No respiratory distress. HEART: Regular rate and rhythm. No murmur ABDOMEN: soft, non-tender. No distention. Bowel sounds present EXTREMITIES: Moves all 4 extremities spontaneously. No edema, No cyanosis. PSYCH: Normal affect, normal mood. SKIN: Warm, dry, normal turgor. No rashes or lesions noted. Course - Re-evaluation Re-evalutation: 10/12/19 06:41 Patient is well-appearing, nontoxic, afebrile, vital signs within normal limits. Lab work all within normal limits. Lipase 111 to rule out pancreatitis. Patient had a HIDA scan on Friday which showed a 76% ejection fraction with no obstruction. Patient states that he did get a right upper quadrant ultrasound prior to the HIDA scan and it was reported that there was no evidence of cholelithiasis or cholecystitis. Because of the patient's significant GI history with esophageal stricture and burning stomach pain I strongly suspect this is related to a gastritis. I recommended that the patient could try to increase his PPI to twice a day. Patient is not jaundiced, no fevers, so I have very low suspicion for ascending cholangitis, no lower abdominal pain so I low suspicion for an appendicitis. Patient is stable for discharge and has been instructed to follow-up with health unit coordinator. - Vital Signs Vital signs: Temp Pulse Resp BP Pulse Ox 97.6 F 10/12/19 04:30 - Laboratory Result Diagrams: 10/12/19 04:55 10/12/19 04:55 Laboratory results interpreted by me: 10/12/19 10/12/19 04:55 04:55 Eos % (Auto) 6.7 H Alkaline Phosphatase 146 H Discharge - Discharge Clinical Impression: Epigastric pain Condition: Good Disposition: HOME, SELF-CARE Instructions: Antinausea Medication ([facility]) Additional Instructions: You were seen in the emergency department for epigastric stabbing pain. Your lab work was all very reassuring and because you have had recent imaging which was all normal this is very reassuring. Your lipase level showed that you do not have pancreatitis and, although the health unit coordinator will give you a more thorough explanation, your HIDA scan was very reassuring and it does not appear to be her gallbladder. You can try to increase your pantoprazole to twice a day and see if that gives you any relief, you can try the Carafate which helps to coat the stomach with mucus, and I have given you Zofran for nausea. You can also continue to take the Phenergan that you were given from your previous visit. Please return to the emergency department if you develop intractable nausea or vomiting, blood in your vomit or blood in your stool, high fevers with severe pain, severe chest pain associated with shortness of breath and breaking out into cold sweats, or you have any other concerning symptoms. Please call your health unit coordinator today to attempt for follow-up tomorrow as it states so and your ER paperwork. Referrals: [facility] [Primary Care Provider] - Follow up as needed JOEL RAMOS MD [ACTIVE STAFF] - Follow up tomorrow
[2019-10-12 06:44] VITALS: BP 132/78
== END 2019-10-12 06:49 | disposition home or self-care (01) ==
LOC: ER 04:30
DX: R10.13 Epigastric pain (principal); R10.84 Generalized abdominal pain; R10.11 Right upper quadrant pain
CPT/HCPCS: 99283; 36415; 83690; 85025; 80053; 81001; J3490